=== PATIENT | female | born 1940 | race Caucasian/White ===

== ENCOUNTER 2016-11-14 10:42 | Day surgery (SDC) | payer OTHER ==
[~2016-11-14] VITALS: Ht 162.6 cm; Wt 89.8 kg
[~2016-11-14 10:42] MED LIST: ANTIVERT25 MG PO; ASPIR 8181 M1 PO; ASPIRIN81 M2 PO; CEPHALEXIN500 MG PO; Coumadin Protocol PO; Coumadin,Jantoven PO; FISH OIL 1,001000 M1 PO; FISH OIL 1,2001 EAC4 PO; HYDRODIURIL,ORE25 MG PO; Hydrodiuril,Oretic,E PO; LIPITOR40 MG PO; LO-DOSE ASPIRIN81 M1 PO; Lipitor PO; PROBIOTIC1 EAC2 PO; REFRESH OPTIVE10 ML BOTH EYES; Senokot S,Pericolace PO; Theragran PO; Tylenol Regular Stre PO; VITAMIN D31000 UNI2 PO; VITAMIN D400 UNI1 PO; Vitamin D PO; oxyCODONE PO
[2016-11-14 11:29] VITALS: BP 133/66
[2016-11-14 11:55] LABS: POINT-OF-CARE METER ID UU14174212
[2016-11-14 14:45] VITALS: BP 151/69
[2016-11-14 15:28] VITALS: BP 175/79
== END 2016-11-14 15:29 | disposition home or self-care (01) ==
LOC: SDC 10:42
PROVIDERS: Ophthalmology
PROC: 3E0C329 Introduction of Other Anti-infective into Eye, Percutaneous Approach (ICD-10-PCS; principal; 2016-11-14)
PROC: 08B43ZZ Excision of Right Vitreous, Percutaneous Approach (ICD-10-PCS; principal; 2016-11-14)
PROC: 3E0C33Z Introduction of Anti-inflammatory into Eye, Percutaneous Approach (ICD-10-PCS; principal; 2016-11-14)
DX: H43.811 Vitreous degeneration, right eye (principal); H43.391 Other vitreous opacities, right eye; I10 Essential (primary) hypertension; E66.9 Obesity, unspecified; Z68.33 Body mass index [BMI] 33.0-33.9, adult; E11.9 Type 2 diabetes mellitus without complications; E53.8 Deficiency of other specified B group vitamins; Z79.82 Long term (current) use of aspirin
CPT/HCPCS: 82948; J0690; J2405; J3300